=== PATIENT | male | born 1960 | race African-American/Black ===

== ENCOUNTER 2018-08-26 08:33 | Inpatient (IN) | payer MEDICARE, MEDICAID, OTHER ==
[~2018-08-26] VITALS: Ht 175.3 cm; Wt 103.5 kg
[~2018-08-26 08:33] MED LIST: ASPI-1159 PO; ATOR-2 PO; CARV25TA47 PO; EXCEDRIN ES PO; FURO40TA5 PO; GABA-531 PO; HYDR-4133 PO; ISOS60TA4 PO; NITR0.4T49 SL; OMEP20CA10 PO
[2018-08-26] MEDS ORDERED: SODIUM CHLORIDE 0.9% 500 ML IV ONE (09:00)
[2018-08-26 09:29] LABS: BASOPHILS % 0.5 % (0.0-2.0); EOSINOPHILS % 0.6 % (0.0-5.0); HEMATOCRIT. 43.4 % (42.0-52.0); HEMOGLOBIN. 14.4 g/dL (14.0-18.0); LYMPHOCYTES % 25.2 % (20.0-50.0); MEAN CORPUSCULAR HEMOGLOBIN 32.8 pg (28.0-32.0); MEAN CORPUSCULAR VOLUME 98.6 fL (80.0-94.0); MEAN PLATELET VOLUME 10.2 fl (7.4-10.4); MONOCYTES % 11.9 % (2.0-8.0); NEUTROPHILS % 61.8 % (40.0-76.0); PLATELET 163 x1000/uL (130-400); RED CELL DISTRIBUTION WIDTH 14.1 % (11.6-14.6)
[2018-08-26 09:36] LABS: CHLORIDE 102 mEq/L (98-107)
[2018-08-26] MEDS ORDERED: ASPIRIN 325MG EC TABLET PO NR (15:30)
[2018-08-26 17:46] LABS: *AMPHETAMINES SCREEN URINE NEGATIVE (NEGATIVE)
[2018-08-26 17:47] LABS: *BARBITURATES SCREEN URINE NEGATIVE (NEGATIVE); *BENZODIAZEPINES SCREEN URINE NEGATIVE (NEGATIVE); *COCAINE SCREEN URINE PRESUMTIVE POSITIVE (NEGATIVE); CANNABINOID URINE SCREEN NEGATIVE (NEGATIVE); METHADONE URINE SCREEN NEGATIVE (NEGATIVE); OPIATES URINE SCREEN NEGATIVE (NEGATIVE); PHENCYCLIDINE URINE SCREEN NEGATIVE (NEGATIVE)
[2018-08-26 21:40] VITALS: BP 150/83
[2018-08-26 22:00] VITALS: BP 161/95
[2018-08-26 22:40] VITALS: BP 161/95
[2018-08-27] VITALS (18 sets, daily range): BP systolic 110–141; BP diastolic 52–96
[2018-08-27] MEDS: ATORVASTATIN CALCIUM 40MG TABLET PO SCH ×2 (00:30→21:08)
[2018-08-27] MEDS ORDERED: ONDANSETRON HCL 4MG/2ML INJ IV PRN ×2 (03:30→16:00)
[2018-08-27] MEDS: HYDROMORPHONE HCL/PF 2MG/ML CPJ IV PRN ×2 (06:11→21:09)
[2018-08-27 06:35] LABS: BASOPHILS % 0.3 % (0.0-2.0); EOSINOPHILS % 0.4 % (0.0-5.0); HEMATOCRIT. 43.4 % (42.0-52.0); HEMOGLOBIN. 14.4 g/dL (14.0-18.0); LYMPHOCYTES % 30.7 % (20.0-50.0); MEAN CORPUSCULAR HEMOGLOBIN 32.5 pg (28.0-32.0); MEAN CORPUSCULAR VOLUME 98.4 fL (80.0-94.0); MEAN PLATELET VOLUME 10.8 fl (7.4-10.4); MONOCYTES % 11.3 % (2.0-8.0); NEUTROPHILS % 57.3 % (40.0-76.0); PLATELET 154 x1000/uL (130-400); RED BLOOD CELL COUNT 4.41 mill/uL (4.7-6.1); RED CELL DISTRIBUTION WIDTH 14.2 % (11.6-14.6)
[2018-08-27 07:06] LABS: CHLORIDE 107 mEq/L (98-107)
[2018-08-27] MEDS: CARVEDILOL 12.5MG TABLET PO SCH ×2 (08:54→17:07)
[2018-08-27] MEDS: ASPIRIN 325MG EC TABLET PO SCH (08:54)
[2018-08-27] MEDS: SODIUM CHLORIDE 0.45% 1,000 ML IV SCH (08:59)
[2018-08-27] MEDS ORDERED: HEPARIN SODIUM 1,000 UNIT/1ML VIAL IV ONE (14:14)
[2018-08-27] MEDS ORDERED: LIDOCAINE HCL 1% 20ML VIAL (Pyxis) INJ ONE (15:11)
[2018-08-27] MEDS ORDERED: IODIXANOL 320MG/ML 100 ML BOTTLE IV ONE (15:12)
[2018-08-27] MEDS ORDERED: MIDAZOLAM HCL 2 MG/2 ML VIAL ONE (15:32)
[2018-08-27] MEDS ORDERED: FENTANYL CITRATE/PF 50MCG/ML 2ML VIAL ONE (15:32)
[2018-08-27] MEDS ORDERED: NITROGLYCERIN 50MCG/ML 10ML VIAL (CATH LAB) IV ONE (15:56)
[2018-08-27] MEDS ORDERED: NICARDIPINE 100MCG/ML 10ML VIAL (CATH LAB) IV ONE (15:56)
[2018-08-27] MEDS ORDERED: ATROPINE SULFATE 1MG/10ML SYR IV PRN (16:00)
[2018-08-27] MEDS ORDERED: ACETAMINOPHEN 325MG TABLET PO PRN (16:00)
[2018-08-27] MEDS: ISOSORBIDE MONONITRATE 30MG TABLET SR 24HR PO SCH (17:07)
[2018-08-28] VITALS (11 sets, daily range): BP systolic 105–127; BP diastolic 59–78
[2018-08-28] MEDS: SODIUM CHLORIDE 0.45% 1,000 ML IV SCH ×3 (02:32→21:41)
[2018-08-28] MEDS: ACETAMINOPHEN 325MG TABLET PO PRN (02:40)
[2018-08-28 05:41] LABS: BASOPHILS % 0.3 % (0.0-2.0); EOSINOPHILS % 0.7 % (0.0-5.0); HEMOGLOBIN. 13.2 g/dL (14.0-18.0); LYMPHOCYTES % 26.6 % (20.0-50.0); MEAN CORPUSCULAR HEMOGLOBIN 32.8 pg (28.0-32.0); MEAN CORPUSCULAR VOLUME 99.1 fL (80.0-94.0); MEAN PLATELET VOLUME 10.8 fl (7.4-10.4); MONOCYTES % 11.4 % (2.0-8.0); PLATELET 147 x1000/uL (130-400); RED BLOOD CELL COUNT 4.04 mill/uL (4.7-6.1); RED CELL DISTRIBUTION WIDTH 14.1 % (11.6-14.6)
[2018-08-28 06:00] LABS: CHLORIDE 105 mEq/L (98-107)
[2018-08-28 06:08] LABS: LDL CHOLESTEROL 66 mg/dL (5-100)
[2018-08-28 06:09] LABS: HDL CHOLESTEROL 46 mg/dL (40-59)
[2018-08-28] MEDS: CARVEDILOL 12.5MG TABLET PO SCH ×3 (08:20→18:15)
[2018-08-28] MEDS ORDERED: CEFAZOLIN 1000MG PREMIX 50 ML IV ONE ×2 (08:43→09:08)
[2018-08-28] MEDS ORDERED: LIDOCAINE HCL/PF 1% 10 MG/ML 5ML VIAL ONE ×2 (08:49→10:22)
[2018-08-28] MEDS ORDERED: IOHEXOL-300 100 ML BOTTLE ONE (08:49)
[2018-08-28] MEDS ORDERED: HEPARIN 1,000 UNITS PREMIX 0 ML IV ONE (08:52)
[2018-08-28] MEDS ORDERED: ASPIRIN 325MG TABLET PO SCH (09:00)
[2018-08-28] MEDS ORDERED: FENTANYL CITRATE/PF 50MCG/ML 2ML VIAL ONE (09:15)
[2018-08-28] MEDS ORDERED: MIDAZOLAM HCL 5 MG/5 ML VIAL ONE (09:44)
[2018-08-28] MEDS ORDERED: DIPHENHYDRAMINE 50MG/ML VIAL ONE (09:51)
[2018-08-28] MEDS ORDERED: GENTAMICIN/NS IRRIGATION 500 ML IR ONE (09:56)
[2018-08-28] MEDS ORDERED: PROPOFOL 200MG/20ML VIAL IV ONE (10:28)
[2018-08-28] MEDS ORDERED: GENTAMICIN SULF 40MG/ML 2ML VIAL ONE (10:31)
[2018-08-28] MEDS: LOSARTAN POTASSIUM 25 MG TABLET PO SCH (11:56)
[2018-08-28] MEDS: ISOSORBIDE MONONITRATE 30MG TABLET SR 24HR PO SCH (11:57)
[2018-08-28] MEDS: ASPIRIN 325MG EC TABLET PO SCH (11:57)
[2018-08-28] MEDS: LISINOPRIL 2.5MG TABLET PO SCH (13:28)
[2018-08-28] MEDS: CEFAZOLIN 1000MG PREMIX 50 ML IV SCH (17:04)
[2018-08-28] MEDS ORDERED: CEFAZOLIN SODIUM 1000MG/VIAL IV SCH (18:00)
[2018-08-28] MEDS: ATORVASTATIN CALCIUM 40MG TABLET PO SCH (21:38)
[2018-08-28] MEDS: HYDROCODONE/ACETAMINOPHEN 5/325MG TABLET PO PRN (21:39)
[2018-08-29] VITALS (9 sets, daily range): BP systolic 117–137; BP diastolic 55–80
[2018-08-29] MEDS: SODIUM CHLORIDE 0.45% 1,000 ML IV SCH (01:38)
[2018-08-29] MEDS: CEFAZOLIN 1000MG PREMIX 50 ML IV SCH (03:07)
[2018-08-29] MEDS: HYDROCODONE/ACETAMINOPHEN 5/325MG TABLET PO PRN (03:07)
[2018-08-29 06:37] LABS: BASOPHILS % 0.3 % (0.0-2.0); EOSINOPHILS % 0.3 % (0.0-5.0); HEMATOCRIT. 39.8 % (42.0-52.0); HEMOGLOBIN. 13.1 g/dL (14.0-18.0); LYMPHOCYTES % 21.7 % (20.0-50.0); MEAN CORPUSCULAR HEMOGLOBIN 32.7 pg (28.0-32.0); MEAN CORPUSCULAR VOLUME 99.6 fL (80.0-94.0); MEAN PLATELET VOLUME 10.8 fl (7.4-10.4); MONOCYTES % 11.4 % (2.0-8.0); NEUTROPHILS % 66.3 % (40.0-76.0); PLATELET 138 x1000/uL (130-400)
[2018-08-29 06:39] LABS: CHLORIDE 108 mEq/L (98-107)
[2018-08-29] MEDS: LOSARTAN POTASSIUM 25 MG TABLET PO SCH (08:48)
[2018-08-29] MEDS: CARVEDILOL 12.5MG TABLET PO SCH (08:48)
[2018-08-29] MEDS: LISINOPRIL 2.5MG TABLET PO SCH (08:48)
[2018-08-29] MEDS: ISOSORBIDE MONONITRATE 30MG TABLET SR 24HR PO SCH (08:48)
[2018-08-29] MEDS: ASPIRIN 325MG EC TABLET PO SCH (08:48)
[2018-08-29] MEDS: ACETAMINOPHEN 325MG TABLET PO PRN (08:55)
== END 2018-08-29 16:17 | disposition home or self-care (01) | DRG 223 ==
LOC: ER 08:45 → 3WST 15:33 → EDBEDREQTM 15:38 → EDBEDREQSVC 15:38 → EDBEDREQ 15:38 → ENRESERV 19:55
PROVIDERS: ADMIT Hospitalist; ATTEND Hospitalist
PROC: 4A023N7 Measurement of Cardiac Sampling and Pressure, Left Heart, Percutaneous Approach (ICD-10-PCS; principal; 2018-08-27)
PROC: B2111ZZ Fluoroscopy of Multiple Coronary Arteries using Low Osmolar Contrast (ICD-10-PCS; 2018-08-27)
PROC: B2151ZZ Fluoroscopy of Left Heart using Low Osmolar Contrast (ICD-10-PCS; 2018-08-27)
PROC: 0JH608Z Insertion of Defibrillator Generator into Chest Subcutaneous Tissue and Fascia, Open Approach (ICD-10-PCS; 2018-08-28)
PROC: 02HK3KZ Insertion of Defibrillator Lead into Right Ventricle, Percutaneous Approach (ICD-10-PCS; 2018-08-28)
PROC: 02H63KZ Insertion of Defibrillator Lead into Right Atrium, Percutaneous Approach (ICD-10-PCS; 2018-08-28)
PROC: B51P1ZZ Fluoroscopy of Bilateral Upper Extremity Veins using Low Osmolar Contrast (ICD-10-PCS; 2018-08-28)
PROC: B5171ZZ Fluoroscopy of Left Subclavian Vein using Low Osmolar Contrast (ICD-10-PCS; 2018-08-28)
DX: I21.4 Non-ST elevation (NSTEMI) myocardial infarction (principal); I50.22 Chronic systolic (congestive) heart failure; I25.10 Atherosclerotic heart disease of native coronary artery without angina pectoris; E78.5 Hyperlipidemia, unspecified; I11.0 Hypertensive heart disease with heart failure; B35.9 Dermatophytosis, unspecified; F17.210 Nicotine dependence, cigarettes, uncomplicated; I25.5 Ischemic cardiomyopathy; R00.1 Bradycardia, unspecified; F14.10 Cocaine abuse, uncomplicated; Z86.73 Personal history of transient ischemic attack (TIA), and cerebral infarction without residual deficits; Z95.5 Presence of coronary angioplasty implant and graft; I25.2 Old myocardial infarction; Z79.82 Long term (current) use of aspirin; Z79.899 Other long term (current) drug therapy; G90.8 Other disorders of autonomic nervous system
CPT/HCPCS: 33249; 36415; 71045; 75820; 80048; 80061; 80305; 82962; 84484; 93005; 93306; 93458; 93641; 93970; 96360; 99285; C1721; C1769; C1887; C1892; C1893; C1898; C1899; J0690; J1170; J1200; J1580; J1644; J2250; J2704; J3010; J3490; J7040; Q9967